=== PATIENT | male | born 2000 | race Caucasian/White ===

== ENCOUNTER 2021-03-14 11:44 | Day surgery (SDC) | payer MEDICAID ==
[~2021-03-14] VITALS: Ht 170.2 cm; Wt 70.6 kg
[2021-03-14 12:58] VITALS: BP 133/87
== END 2021-03-14 18:36 | disposition home or self-care (01) ==
LOC: OUT 11:44
PROVIDERS: ATTEND Orthopaedic Surgery
DX: S63.095A Other dislocation of left wrist and hand, initial encounter (principal); E66.3 Overweight; Z68.25 Body mass index [BMI] 25.0-25.9, adult; Z20.822 Contact with and (suspected) exposure to COVID-19; V00.131A Fall from skateboard, initial encounter; Y93.51 Activity, roller skating (inline) and skateboarding; Y92.830 Public park as the place of occurrence of the external cause; Y99.8 Other external cause status
CPT/HCPCS: 25320; 25695; 64415; 64721; 73110; 87635; C1713; C1776; J0690; J1100; J1170; J1885; J2250; J2405; J2704; J3010; J7120